=== PATIENT | male | born 1975 | race Two or more races ===

== ENCOUNTER 2025-09-08 22:28 | Emergency (ER) | payer SELFPAY ==
[2025-09-08 22:29] VITALS: BMI 29.7
[2025-09-08 22:40] VITALS: BP 167/94; PULSE 74; RESP 19; TEMP 36.9; O2SAT 96
--- NOTE | 2025-09-08 22:51 | PD.EDHEAD ---
ED Head Injury RME/HPI General Chief complaint: Head Injury Stated complaint: HEAD INJURY Time Seen by Provider: 09/08/25 22:32 Source: patient, RN notes reviewed and old records reviewed Arrival date/time: 09/08/25 22:28 Mode of arrival: ambulatory Limitations: no limitations RME / HPI RME / HPI Narrative: 50yom presents to ED with daughter for fall this evening. Patient fell down a flight of stairs and hit head on the concrete, obtained laceration to posterior scalp. No LOC reported. Patient c/o headache, generalized back pain and left middle finger pain. +etoh. No vision changes, shortness of breath, chest pain, nausea/vomiting, neck pain or dizziness reported. 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 Rx's ?Medication ?Instructions ?Recorded lorazepam 1 mg tablet (Ativan) 1 mg PO TID PRN alcohol withdrawal 06/25/22 #20 tabs Allergies Allergy/AdvReac Type Severity Reaction Status Date / Time bee venom protein (honey bee) Allergy Verified 09/08/25 22:36 Review of Systems Review of Systems Systems Reviewed: All systems reviewed, normal except as documented Constitutional Constitutional: Reports headache(s) Eyes Eyes: Denies blurry vision and Denies change in vision ENT Ears, Nose, Mouth, and Throat: Denies dizziness, Reports headache(s) and Denies neck pain Cardiovascular Cardiovascular: Denies chest pain, Denies dyspnea and Denies syncope Respiratory Respiratory: Denies dyspnea Gastrointestinal Gastrointestinal: Denies nausea and Denies vomiting Musculoskeletal Musculoskeletal: Reports arthralgias, Reports back pain, Denies deformity, Denies neck pain, Denies numbness and Denies tingling Integumentary/Breasts Comments: Reports laceration Neurologic Neurologic: Denies dizziness, Reports headache(s), Denies numbness, Denies syncope and Denies tingling Past Medical History Surgical History OTHER SURGICAL HX: Surgical I&D of finger Social History SMOKING STATUS: Never smoker SUBSTANCE USE: does not use ALCOHOL: Current Past Medical History Comments PMH COMMENT: Denies past medical history ED Exam General Limitations: Present no limitations General appearance: Present alert, in no apparent distress and appears intoxicated (Mild) Head Head exam: Present normocephalic and other (8cm laceration to posterior scalp. No significant wound gaping, no active bleeding) Eye Eye exam: Present normal appearance, PERRL and EOMI ENT ENT exam: Present normal exam and mucous membranes moist Neck Neck exam: Present normal inspection and full ROM; Absent tenderness Chest Chest inspection: Present normal inspection and symmetric chest wall rise; Absent tenderness Respiratory Respiratory exam: Present normal lung sounds bilaterally; Absent respiratory distress Cardiovascular Cardiovascular exam: Present regular rate and normal rhythm Extremities Exam Extremities exam: Present other (Mild tenderness to left middle finger. FROM. <2s cap refill, sensation intact) Back Exam Back exam: Present normal inspection, full ROM and paraspinal tenderness (Bilateral lumbar); Absent vertebral tenderness Neurological Exam Neurological exam: Present alert, oriented X3, CN II-XII intact and normal gait; Absent motor sensory deficit Psychiatric Psychiatric exam: Present normal affect and normal mood Skin Skin exam: Present warm, dry and normal color Course Quality Measures none Orders Category Date Time Status CT cervical spine wo con Stat Exams 09/08/25 23:[address] head/brain wo con Stat Exams 09/08/25 23:06 Completed XR hand comp LT min 3V Stat Exams 09/08/25 23:06 Taken XR lumbar spine 2-3V Stat Exams 09/08/25 23:06 Taken XR thoracic spine 3V Stat Exams 09/08/25 23:06 Taken Vital Signs Vital signs: Vital Signs Temperature 98.4 F 09/08/25 22:40 Pulse Rate 74 09/08/25 22:40 Respiratory Rate 19 09/08/25 22:40 Blood Pressure 167/94 H 09/08/25 22:40 Pulse Oximetry (%) 96 09/08/25 22:40 Oxygen Delivery Method Room Air 09/08/25 22:40 PROCEDURES: Laceration Laceration 1: Site: scalp (Posterior) Size (cm): 8 Description: linear Depth: simple, single layer Pre-repair: irrigated extensively Skin layer closed with: other (7 nga) Head Injury MDM Narrative MDM Narrative:: 50yom presents to ED with daughter for fall this evening. Patient fell down a flight of stairs and hit head on the concrete, obtained laceration to posterior scalp. No LOC reported. Patient c/o headache, generalized back pain and left middle finger pain. +etoh. No vision changes, shortness of breath, chest pain, nausea/vomiting, neck pain or dizziness reported. 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 Scalp laceration repaired with nga. Patient tolerated procedure well, condition improved. Home wound care discussed. Instructed to return in 5 to 7 days for staple removal. Stable for discharge, RTED precautions given. Patient data External records reviewed:: [facility] previous records (06/25/2022 ED visit for alcohol dependence) Clinical information provided by:: patient and family (Daughter) Social determinants that could affect healthcare access:: none Patient has the following chronic illnesses:: None How is presenting disease/condition affected by chronic disease/condition?: no chronic disease Evaluation data The following diagnostics were reviewed and interpreted by me:: radiology exam(s) Lab and/or radiology exams considered but not ordered:: None Interpretation Summary: Hand x-rays: No fracture per my read CT head: No ICH per my read Medications / Prescriptions Medications or Prescriptions considered but not ordered:: Tylenol: Patient declines pain medication Medication administrations:: none Consultations Consultation(s) initiated? (list below): No Diagnosis Differential diagnosis head injury: other (Head injury, cervical fracture, back pain, fracture, sprain, strain, contusion, MSK pain) Most likely diagnosis given after review of the tests above:: Fall, head injury, scalp laceration Admission Indicated Admission indicated?: not indicated Admission Request Was there a request for admission?: No Disposition Plan Disposition Plan: Discharge Discharge Attestation Discharge Attestation: The patient and all family members were given an opportunity to ask questions and understood the discharge instructions. Discharge instructions specifically effects, indications for sooner follow up or return to the emergency department, and the expected course of current diagnosis. Patient condition: Stable Discharge Plan Plan Patient Disposition: HOME (Self Care) Patient condition on transfer: Stable Prescriptions/Referrals Prescriptions/Med Rec: No Action lorazepam [Ativan] 1 mg tablet 1 mg PO TID PRN (Reason: alcohol withdrawal) Qty: 20 0RF Problem List Clinical Impression: Laceration of scalp, Head injury, Contusion of left middle finger Patient/Caregiver Discharge Instructions Education Materials: ED Laceration Scalp Sutures or ... Additional Instructions: Return to ED or PCP in 5-7 days for staple removal Print Language: Gabonese Stand Alone Forms: Gracia Award Info., Patient Portal Info Letter PA/MIO Supervising Physician MANDO/MIO Supervising Physician: Jonn
--- NOTE | 2025-09-08 23:06 | XR_ITS ---
EXAMINATION: Thoracic spine 3 views TECHNIQUE: AP lateral: Lateral upper dorsal spine 3 views Date and time: September 09, 2025, 1218 hours INDICATIONS: Patient fell today with injury to the upper back, upper back pain. FINDINGS: No acute thoracic fracture Moderate diffuse thoracic degenerative disc disease Prominent thoracic spondylosis IMPRESSION: No acute thoracic fracture
--- NOTE | 2025-09-08 23:06 | XR_ITS ---
Examination: CT brain head without contrast. 2-D sagittal coronal reconstructions Date and time of exam: September 08, 2025, 1131 hours INDICATIONS: Patient fell today with injury to the head, head pain CTDI: vol (mGy): 52.7 DLP: (mGycm): 1095 Technique: Multiple CT axial sections of the brain have been obtained, 5 mm slice thickness. Contrast has not been administered. 2-D sagittal, coronal reconstructions have been obtained Low dose protocols were performed. One or more of the following dose reduction techniques were used; automated exposure control, adjustment of the mA and/or KV according to patient size, use of iterative reconstruction technique. Findings: No significant ventricular enlargement. Intra-axial or extra-axial hemorrhage density is not seen. No mass effect or midline shift Basal cisterns are not remarkable. Fourth ventricle is midline. Cranial vault intact. Impression: Negative for acute hemorrhage, mass effect or midline shift
--- NOTE | 2025-09-08 23:06 | XR_ITS ---
Examination: CT cervical spine without contrast 2-D sagittal reconstructions 2-D coronal reconstructions 3-D reconstructions. Exam date and time: September 08, 2025, 11:39 p.m. INDICATION: Patient fell today with injury to the neck, neck pain CTDI:vol (mGy): 13.3 DLP: (mGycm) 348 Technique: Multiple 2 mm axial sections of the cervical spine have been obtained. The coronal and sagittal reconstructions have been obtained. 3-D reconstructions have been obtained. Low dose protocols were performed. One or more of the following dose reduction techniques were used; automated exposure control, adjustment of the mA and/or KV according to patient size, use of iterative reconstruction technique. Findings: Axial sections demonstrate intact base of the skull. C1 exhibit satisfactory relationship to the odontoid. No acute cervical vertebral body fracture seen. Alignment posterior spinous processes satisfactory. Impression: No acute cervical fracture.
--- NOTE | 2025-09-08 23:06 | XR_ITS ---
EXAMINATION: Lumbar spine 3 views TECHNIQUE: AP lateral: Lateral lower lumbar spine 3 views Date and time: September 09, 2025, 0020 hours INDICATIONS: Patient fell today with injury to the lower back, lower back pain FINDINGS: Satisfactory alignment lumbar vertebral bodies No lumbar fracture Diffuse mild to moderate lumbar disc narrowing No spondylolisthesis Prominent lumbar spondylosis IMPRESSION: No acute lumbar fracture
--- NOTE | 2025-09-08 23:06 | XR_ITS ---
Examination: Hand, left 3 views Technique: Hand AP, oblique, lateral 3 views Date and time of exam: September 09, 2025, 0009 hours INDICATIONS: Patient fell today with injury to the hand, hand pain FINDINGS: No acute fracture No dislocation No foreign body IMPRESSION: No acute fracture
== END 2025-09-09 01:06 | disposition home or self-care (01) ==
PROVIDERS: Emergency Provider Emergency Medicine; PCP Family Medicine
DX: S01.01XA Laceration without foreign body of scalp, initial encounter (principal); S60.032A Contusion of left middle finger without damage to nail, initial encounter; W10.9XXA Fall (on) (from) unspecified stairs and steps, initial encounter
CPT/HCPCS: 12004; 70450; 72072; 72100; 72125; 73130; 99283